=== PATIENT | female | born 1990 | race Caucasian/White ===

== ENCOUNTER 2023-03-01 20:22 | Emergency (ER) | payer MEDICAID, OTHER ==
[~2023-03-01] VITALS: Ht 165.1 cm; Wt 59.0 kg
[2023-03-01 20:32] VITALS: BP 117/58; TEMP 98
[2023-03-01] MEDS ORDERED: FLUORESCEIN SODIUM OPHTH 1 EA STRIP ONE (21:17)
[2023-03-01] MEDS: FLUORESCEIN SODIUM OPHTH 1 EA STRIP OP ONE (21:18)
[2023-03-01] MEDS ORDERED: MOXI3DRO LEFTEYE (21:30)
[2023-03-01 21:38] VITALS: O2SAT 98
== END 2023-03-01 21:39 | disposition home or self-care (01) ==
LOC: ER 20:35
DX: H18.822 Corneal disorder due to contact lens, left eye (principal); F41.9 Anxiety disorder, unspecified; Z88.0 Allergy status to penicillin